=== PATIENT | female | born 1975 | race Caucasian/White ===

== ENCOUNTER 2018-07-21 21:02 | Inpatient (IN) | payer MEDICAID ==
[~2018-07-21] VITALS: Ht 167.6 cm; Wt 83.1 kg
[2018-07-21 22:39] LABS: Basophils # (auto) 0 uL; Basophils % (auto) 0.3 % (0.0-2.0); Eosinophils # (auto) 0 uL; Eosinophils % (auto) 0.4 % (0.0-7.0); Lymphocytes # (auto) 0.5 uL; Lymphocytes % (auto) 8.3 % (10.0-50.0); Mean Corpuscular Hemoglobin 32.8 pg (28.0-32.0); Mean Corpuscular Volume 96.4 fL (80.0-100.0); Monocytes # (auto) 0.3 uL; Monocytes % (auto) 5.1 % (0.0-12.0); Neutrophils # (auto) 5.4 uL; Neutrophils % (auto) 85.9 % (37.0-80.0); Platelet Count (auto) 200 10^3/uL (140-450); Red Blood Cells 4.87 10^6/uL (4.0-5.20); Red Cell Distribution Width 13.9 % (11.8-14.3); White Blood Cell 6.3 10^3/uL (4.4-10.8)
[2018-07-21 22:48] LABS: Albumin 3.4 g/dL (3.4-5.0); Calcium 8.3 mg/dL (8.5-10.1)
[2018-07-21 22:52] LABS: BUN/Creatinine Ratio 19.2; Bilirubin, Total 0.8 mg/dL (0.2-1.0); Total Protein 7.2 g/dL (6.4-8.2)
[2018-07-21] MEDS ORDERED: ONDANSETRON HCL 4 MG/2 ML VIAL IV ONE (23:00)
[2018-07-21] MEDS ORDERED: FAMOTIDINE (10MG/ML) 2ML VL IV ONE (23:00)
[2018-07-21] MEDS ORDERED: MORPHINE SULFATE 4 MG/ML SYR/VIAL IV ONE (23:00)
[2018-07-22 00:28] LABS: Urine Bacteria FEW /hpf (None Seen); Urine Blood 3+ /uL (Negative); Urine Mucus FEW (None Seen); Urine Specific Gravity 1.033 (1.001-1.035); Urine WBC 3 /hpf (0 - 5)
[2018-07-22] MEDS ORDERED: MVI in SODIUM CHLORIDE 0.9% 1,010 ML ONE (01:01)
[2018-07-22] MEDS ORDERED: ACETAMINOPHEN 325 MG TAB PO PRN (03:00)
[2018-07-22] MEDS ORDERED: ONDANSETRON HCL 4 MG/2 ML VIAL IV PRN (03:00)
[2018-07-22] MEDS ORDERED: POTASSIUM CHL 20 Meq TABLET PO ONE ×2 (03:00→13:45)
[2018-07-22] MEDS: HYDROcodone-ACET 5/325MG TAB PO PRN ×3 (03:21→19:57)
[2018-07-22 04:10] VITALS: BP 118/76
[2018-07-22 04:57] VITALS: BP 118/76
[2018-07-22 09:00] VITALS: BP 129/82
[2018-07-22] MEDS: THIAMINE HCL 100 MG TAB PO SCH (10:37)
[2018-07-22] MEDS: FAMOTIDINE 20 MG TAB PO SCH ×2 (10:37→22:01)
[2018-07-22] MEDS: FOLIC ACID 1 MG TAB PO SCH (10:37)
[2018-07-22] MEDS ORDERED: THIAMINE INJ 100 MG, MULTIPLE VITAMIN 10 ML, FOLIC ACID 1 MG, MAGNESIUM SULF SDV 50% 8 ... IV ONE ×5 (12:00)
[2018-07-22 12:49] VITALS: BP 142/91
[2018-07-22 15:21] LABS: BUN/Creatinine Ratio 13.4; Calcium 7.8 mg/dL (8.5-10.1); Potassium 3.7 mmol/L (3.5-5.1)
[2018-07-22 17:00] VITALS: BP 146/96
[2018-07-22 22:00] VITALS: BP 144/77
[2018-07-22] MEDS: PROPRANOLOL HCL 20 MG TAB PO SCH (22:00)
[2018-07-23] MEDS: HYDROcodone-ACET 5/325MG TAB PO PRN ×2 (01:51→18:38)
[2018-07-23] MEDS: TEMAZEPAM 15 MG CAP PO PRN (01:51)
[2018-07-23 05:38] VITALS: BP 128/90
[2018-07-23 05:38] LABS: Basophils # (auto) 0 uL; Basophils % (auto) 0.7 % (0.0-2.0); Eosinophils # (auto) 0.3 uL; Eosinophils % (auto) 3.9 % (0.0-7.0); Hematocrit 43.2 % (36.0-46.0); Lymphocytes # (auto) 1.6 uL; Lymphocytes % (auto) 24.7 % (10.0-50.0); Mean Corpuscular Hemoglobin 33.6 pg (28.0-32.0); Mean Corpuscular Hgb Conc. 34.6 g/dL (32.0-36.0); Monocytes # (auto) 0.5 uL; Monocytes % (auto) 8.2 % (0.0-12.0); Neutrophils % (auto) 62.5 % (37.0-80.0); Platelet Count (auto) 190 10^3/uL (140-450); Red Blood Cells 4.46 10^6/uL (4.0-5.20); White Blood Cell 6.4 10^3/uL (4.4-10.8)
[2018-07-23 05:54] LABS: INR 0.96 (0.9-1.15); Partial Thromboplastin Time 27.4 sec (23.78-33.04); Prothrombin Time 10.3 sec (9.27-12.13)
[2018-07-23 06:06] LABS: Albumin 3.1 g/dL (3.4-5.0); BUN/Creatinine Ratio 10.2; Potassium 4.4 mmol/L (3.5-5.1)
[2018-07-23 06:08] LABS: Bilirubin, Total 0.5 mg/dL (0.2-1.0); Total Protein 6.7 g/dL (6.4-8.2)
[2018-07-23 07:50] VITALS: BP 113/78
[2018-07-23] MEDS: FOLIC ACID 1 MG TAB PO SCH (10:06)
[2018-07-23] MEDS: THIAMINE HCL 100 MG TAB PO SCH (10:07)
[2018-07-23] MEDS: FAMOTIDINE 20 MG TAB PO SCH ×2 (10:07→22:00)
[2018-07-23] MEDS: PROPRANOLOL HCL 20 MG TAB PO SCH ×2 (10:07→22:00)
[2018-07-23 13:00] VITALS: BP 127/84
[2018-07-23 17:00] VITALS: BP 130/93
[2018-07-23 22:24] VITALS: BP 138/90
[2018-07-24] MEDS: HYDROcodone-ACET 5/325MG TAB PO PRN ×2 (05:21→22:00)
[2018-07-24 05:58] VITALS: BP 129/86
[2018-07-24 09:00] VITALS: BP 105/70
[2018-07-24] MEDS: FOLIC ACID 1 MG TAB PO SCH (10:47)
[2018-07-24] MEDS: THIAMINE HCL 100 MG TAB PO SCH (10:47)
[2018-07-24] MEDS: PROPRANOLOL HCL 20 MG TAB PO SCH ×2 (10:48→22:15)
[2018-07-24] MEDS: FAMOTIDINE 20 MG TAB PO SCH ×2 (10:48→22:30)
[2018-07-24] MEDS ORDERED: GADOPENTETATE DIMEGLUMINE (10MMOL/20 ML) VIAL IV ONE (12:43)
[2018-07-24 13:00] VITALS: BP 124/89
[2018-07-24 17:00] VITALS: BP 126/83
[2018-07-24 22:00] VITALS: BP 125/78
[2018-07-24 23:16] LABS: Urine Bacteria NONE SEEN /hpf (None Seen); Urine Blood 2+ /uL (Negative); Urine Specific Gravity 1.002 (1.001-1.035); Urine WBC <1 /hpf (0 - 5)
[2018-07-25 05:30] VITALS: BP 105/65
[2018-07-25] MEDS ORDERED: ceFAZolin 1GM/50ML 100 ML IV ONE (07:12)
[2018-07-25] MEDS ORDERED: GENTAMICIN SULF 80 MG/2 ML VIAL ONE (07:13)
[2018-07-25] MEDS ORDERED: SUCCINYLCHOLINE CHLORIDE 20 MG/ML 10ML VIAL IV ONE (07:19)
[2018-07-25] MEDS ORDERED: LIDOCAINE 1% INJ PF 5ML AMP ONE (07:19)
[2018-07-25] MEDS ORDERED: MIDAZOLAM HCL 1MG/1ML-2 ML VIAL ONE (07:22)
[2018-07-25] MEDS ORDERED: PROPOFOL 10 MG/ML 20 ML IV ONE (07:23)
[2018-07-25] MEDS ORDERED: ROCURONIUM 10MG/ML 10ML VIAL IV ONE (07:23)
[2018-07-25] MEDS ORDERED: METOCLOPRAMIDE HCL 5MG/ml INJ 2ml VIAL ONE (07:23)
[2018-07-25] MEDS ORDERED: fentaNYL CITRATE 100 MCG/2 ML VL ONE (07:37)
[2018-07-25] MEDS ORDERED: HYDROmorphone HCL 2 MG/ML VL IV PRN (07:45)
[2018-07-25] MEDS ORDERED: ONDANSETRON HCL 4 MG/2 ML VIAL IV ONE (07:45)
[2018-07-25] MEDS ORDERED: NALOXONE HCL 0.4 MG/ML VIAL IV PRN (07:45)
[2018-07-25] MEDS ORDERED: ePHEDrine SULFATE 50 MG/ML AMP ONE (07:47)
[2018-07-25] MEDS ORDERED: STERILE WATER 10 ML ONE (07:49)
[2018-07-25] MEDS ORDERED: KETOROLAC TROMETH 30 MG/ML 1ML VIAL ONE (08:02)
[2018-07-25] MEDS ORDERED: GLYCOPYRROLATE 0.2 MG/ML 1ML VIAL ONE (08:06)
[2018-07-25] MEDS ORDERED: NEOSTIGMINE 1 MG/ML INJ (10mg/10ML VIAL) ONE (08:06)
[2018-07-25] MEDS: HYDROmorphone HCL 2 MG/ML VL IV PRN ×7 (08:39→20:48)
[2018-07-25] MEDS ORDERED: ACETAMINOPHEN IV 100 ML IV ONE (08:45)
[2018-07-25] MEDS: FOLIC ACID 1 MG TAB PO SCH (11:21)
[2018-07-25] MEDS: THIAMINE HCL 100 MG TAB PO SCH (11:21)
[2018-07-25] MEDS: FAMOTIDINE 20 MG TAB PO SCH ×2 (11:21→21:51)
[2018-07-25] MEDS: ONDANSETRON HCL 4 MG/2 ML VIAL IV PRN ×2 (11:24→17:14)
[2018-07-25 11:34] LABS: Basophils # (auto) 0.1 uL; Basophils % (auto) 1.2 % (0.0-2.0); Eosinophils # (auto) 0.2 uL; Eosinophils % (auto) 2.7 % (0.0-7.0); Hematocrit 43.8 % (36.0-46.0); Hemoglobin 14.9 g/dL (12.2-16.2); Lymphocytes # (auto) 1.7 uL; Mean Corpuscular Hemoglobin 32.6 pg (28.0-32.0); Mean Corpuscular Hgb Conc. 34.1 g/dL (32.0-36.0); Mean Corpuscular Volume 95.8 fL (80.0-100.0); Monocytes # (auto) 0.6 uL; Monocytes % (auto) 6.5 % (0.0-12.0); Neutrophils # (auto) 6.6 uL; Neutrophils % (auto) 71.6 % (37.0-80.0); Nucleated Red Blood Cells % 0.1 %; Platelet Count (auto) 194 10^3/uL (140-450); Red Blood Cells 4.57 10^6/uL (4.0-5.20); Red Cell Distribution Width 13.8 % (11.8-14.3); White Blood Cell 9.2 10^3/uL (4.4-10.8)
[2018-07-25] MEDS: PROPRANOLOL HCL 20 MG TAB PO SCH ×2 (11:36→21:51)
[2018-07-25 11:49] LABS: Albumin 2.9 g/dL (3.4-5.0); Calcium 8.1 mg/dL (8.5-10.1)
[2018-07-25 11:52] LABS: BUN/Creatinine Ratio 16.1; Bilirubin, Total 0.3 mg/dL (0.2-1.0); Total Protein 6.1 g/dL (6.4-8.2)
[2018-07-25] MEDS ORDERED: ceFAZolin 1GM/50ML 50 ML IV NR (12:00)
[2018-07-25] MEDS: LACTATED RINGER'S 1,000 ML IV SCH ×3 (12:13→21:56)
[2018-07-25 13:00] VITALS: BP 111/60
[2018-07-25 16:45] VITALS: BP 116/71
[2018-07-25] MEDS: ceFAZolin 1GM/50ML 50 ML IV SCH (17:14)
[2018-07-25 22:00] VITALS: BP 111/67
[2018-07-26] MEDS: HYDROmorphone HCL 2 MG/ML VL IV PRN ×7 (00:53→23:57)
[2018-07-26] MEDS: ceFAZolin 1GM/50ML 50 ML IV SCH (01:03)
[2018-07-26] MEDS: LACTATED RINGER'S 1,000 ML IV SCH ×2 (03:04→09:04)
[2018-07-26 05:10] VITALS: BP 127/80
[2018-07-26 05:39] LABS: Basophils # (auto) 0 uL; Basophils % (auto) 0.3 % (0.0-2.0); Eosinophils # (auto) 0.1 uL; Eosinophils % (auto) 1.4 % (0.0-7.0); Hematocrit 40.6 % (36.0-46.0); Hemoglobin 14.2 g/dL (12.2-16.2); Lymphocytes # (auto) 1.7 uL; Lymphocytes % (auto) 21.3 % (10.0-50.0); Mean Corpuscular Hemoglobin 33.2 pg (28.0-32.0); Mean Corpuscular Hgb Conc. 34.8 g/dL (32.0-36.0); Mean Corpuscular Volume 95.4 fL (80.0-100.0); Monocytes # (auto) 0.9 uL; Monocytes % (auto) 11.2 % (0.0-12.0); Neutrophils # (auto) 5.3 uL; Neutrophils % (auto) 65.8 % (37.0-80.0); Nucleated Red Blood Cells % 0.1 %; Platelet Count (auto) 164 10^3/uL (140-450); Red Blood Cells 4.26 10^6/uL (4.0-5.20); Red Cell Distribution Width 13.6 % (11.8-14.3)
[2018-07-26 08:30] VITALS: BP 115/75
[2018-07-26 09:00] VITALS: BP_SYST 115; BP_SYST 132; BP_DIAS 51; BP_DIAS 75
[2018-07-26] MEDS ORDERED: HYDROcodone-ACET 5/325MG TAB PO PRN ×2 (09:15)
[2018-07-26] MEDS: PROPRANOLOL HCL 20 MG TAB PO SCH ×2 (09:38→22:07)
[2018-07-26] MEDS: FOLIC ACID 1 MG TAB PO SCH (09:38)
[2018-07-26] MEDS: DOCUSATE SOD 100 MG CAP PO SCH ×2 (09:39→22:06)
[2018-07-26] MEDS: THIAMINE HCL 100 MG TAB PO SCH (09:39)
[2018-07-26] MEDS: SIMETHICONE 80 MG CHEWABLE TABLET PO PRN (09:39)
[2018-07-26] MEDS: FAMOTIDINE 20 MG TAB PO SCH ×2 (09:39→22:07)
[2018-07-26] MEDS: SODIUM CHLORIDE 0.9% 1,000 ML IV SCH (11:42)
[2018-07-26 13:00] VITALS: BP 129/90
[2018-07-26 17:00] VITALS: BP 121/72
[2018-07-26 22:00] VITALS: BP 134/79
[2018-07-27] MEDS: SODIUM CHLORIDE 0.9% 1,000 ML IV SCH ×2 (01:30→07:45)
[2018-07-27] MEDS: HYDROmorphone HCL 2 MG/ML VL IV PRN ×6 (03:30→20:06)
[2018-07-27 05:00] VITALS: BP 122/73
[2018-07-27 05:15] LABS: Basophils # (auto) 0.1 uL; Basophils % (auto) 0.9 % (0.0-2.0); Eosinophils # (auto) 0.1 uL; Eosinophils % (auto) 1.3 % (0.0-7.0); Hematocrit 40.6 % (36.0-46.0); Hemoglobin 14.1 g/dL (12.2-16.2); Lymphocytes # (auto) 1.7 uL; Lymphocytes % (auto) 25.7 % (10.0-50.0); Mean Corpuscular Hemoglobin 33.1 pg (28.0-32.0); Mean Corpuscular Hgb Conc. 34.9 g/dL (32.0-36.0); Mean Corpuscular Volume 94.9 fL (80.0-100.0); Monocytes # (auto) 1.2 uL; Monocytes % (auto) 17.4 % (0.0-12.0); Neutrophils # (auto) 3.7 uL; Neutrophils % (auto) 54.7 % (37.0-80.0); Nucleated Red Blood Cells % 0.2 %; Platelet Count (auto) 189 10^3/uL (140-450); Red Blood Cells 4.28 10^6/uL (4.0-5.20); Red Cell Distribution Width 13.3 % (11.8-14.3); White Blood Cell 6.7 10^3/uL (4.4-10.8)
[2018-07-27 05:30] LABS: Albumin 2.6 g/dL (3.4-5.0); Calcium 8.4 mg/dL (8.5-10.1); INR 0.96 (0.9-1.15); Magnesium 1.9 mg/dL (1.6-2.6); Partial Thromboplastin Time 29.2 sec (23.78-33.04); Potassium 3.8 mmol/L (3.5-5.1); Prothrombin Time 10.3 sec (9.27-12.13)
[2018-07-27 05:35] LABS: BUN/Creatinine Ratio 9.1; Bilirubin, Direct 0.2 mg/dL (0-0.2); Bilirubin, Total 0.6 mg/dL (0.2-1.0); Total Protein 6.2 g/dL (6.4-8.2)
[2018-07-27 08:25] VITALS: BP 123/76
[2018-07-27 08:30] VITALS: BP 123/76
[2018-07-27] MEDS: SIMETHICONE 80 MG CHEWABLE TABLET PO PRN (08:36)
[2018-07-27] MEDS: FOLIC ACID 1 MG TAB PO SCH (08:36)
[2018-07-27] MEDS: DOCUSATE SOD 100 MG CAP PO SCH ×2 (08:36→23:32)
[2018-07-27] MEDS: FAMOTIDINE 20 MG TAB PO SCH ×2 (08:36→23:32)
[2018-07-27] MEDS: THIAMINE HCL 100 MG TAB PO SCH (08:36)
[2018-07-27] MEDS: PROPRANOLOL HCL 20 MG TAB PO SCH ×2 (08:37→23:33)
[2018-07-27 12:10] VITALS: BP 134/79
[2018-07-27] MEDS ORDERED: chlordiazePOXIDE HCL 5 MG CAP PO PRN (12:15)
[2018-07-27 16:36] VITALS: BP 138/83
[2018-07-27] MEDS: HYDROcodone-ACET 10/325MG TAB PO PRN (17:49)
[2018-07-27 21:27] VITALS: BP 135/88
[2018-07-27] MEDS: TEMAZEPAM 15 MG CAP PO PRN (23:41)
[2018-07-28] MEDS: HYDROcodone-ACET 10/325MG TAB PO PRN (01:38)
[2018-07-28] MEDS: HYDROmorphone HCL 2 MG/ML VL IV PRN ×4 (03:20→18:40)
[2018-07-28 04:48] VITALS: BP 126/81
[2018-07-28 08:00] VITALS: BP 144/91
[2018-07-28 08:21] VITALS: BP 144/91
[2018-07-28] MEDS: DOCUSATE SOD 100 MG CAP PO SCH (09:44)
[2018-07-28] MEDS: FAMOTIDINE 20 MG TAB PO SCH (09:44)
[2018-07-28] MEDS: FOLIC ACID 1 MG TAB PO SCH (09:44)
[2018-07-28] MEDS: THIAMINE HCL 100 MG TAB PO SCH (09:45)
[2018-07-28] MEDS: PROPRANOLOL HCL 20 MG TAB PO SCH (09:45)
[2018-07-28 12:13] VITALS: BP 132/90
[2018-07-28] MEDS ORDERED: HYDR-4683 PO (16:25)
[2018-07-28] MEDS ORDERED: FOLI1TAB6 PO (16:26)
[2018-07-28] MEDS ORDERED: IBUP800T24 PO (16:26)
[2018-07-28] MEDS ORDERED: CEPH-37 PO (16:26)
[2018-07-28] MEDS ORDERED: METO25TA5 PO (16:26)
[2018-07-28] MEDS ORDERED: THIA50CA PO (16:26)
[2018-07-28] MEDS ORDERED: DOCU100C8 PO (16:26)
[2018-07-28 16:54] VITALS: BP 137/63
== END 2018-07-28 19:45 | disposition home health service (06) | DRG 264 ==
LOC: EDUNIT# 21:02 → EDBD 21:02 → ER 21:05 → OVERFLOW 07-22 03:06 → EAST 07-22 04:00
PROVIDERS: ADMIT Nurse Practitioner; ATTEND Hospitalist
PROC: 0DTJ0ZZ Resection of Appendix, Open Approach (ICD-10-PCS; 2018-07-25)
PROC: 0DBW0ZZ Excision of Peritoneum, Open Approach (ICD-10-PCS; 2018-07-25)
PROC: 0D9W0ZZ Drainage of Peritoneum, Open Approach (ICD-10-PCS; 2018-07-25)
PROC: 0WJJ0ZZ Inspection of Pelvic Cavity, Open Approach (ICD-10-PCS; principal; 2018-07-25 07:21)
DX: K70.10 Alcoholic hepatitis without ascites (principal); K66.8 Other specified disorders of peritoneum; E66.01 Morbid (severe) obesity due to excess calories; K76.0 Fatty (change of) liver, not elsewhere classified; N83.292 Other ovarian cyst, left side; N70.11 Chronic salpingitis; E87.6 Hypokalemia; F10.20 Alcohol dependence, uncomplicated; I10 Essential (primary) hypertension; K21.9 Gastro-esophageal reflux disease without esophagitis; I34.1 Nonrheumatic mitral (valve) prolapse; D27.0 Benign neoplasm of right ovary; F17.210 Nicotine dependence, cigarettes, uncomplicated; Z80.51 Family history of malignant neoplasm of kidney; Z80.8 Family history of malignant neoplasm of other organs or systems; Z68.29 Body mass index [BMI] 29.0-29.9, adult; R19.00 Intra-abdominal and pelvic swelling, mass and lump, unspecified site
CPT/HCPCS: 36415; 71045; 73723; 74176; 76705; 76856; 80048; 80053; 80076; 81001; 82378; 83690; 83735; 84439; 84443; 84702; 85025; 85610; 85730; 86301; 86304; 86850; 86900; 86901; 86920; 93005; 94761; 96365; 96375; 97116; 97163; 97530; G0378; J0131; J0330; J0690; J1885; J2250; J2405; J2704; J3490

== ENCOUNTER 2019-06-28 12:07 | Emergency (ER) | payer MEDICAID ==
[~2019-06-28] VITALS: Ht 317.5 cm; Wt 86.2 kg
[~2019-06-28 12:07] MED LIST: CEPH-37 PO; DOCU100C8 PO; FOLI1TAB6 PO; HYDR-4833 PO; IBUP800T24 PO; METO25TA5 PO; THIA50CA PO
[2019-06-28 12:40] LABS: Urine Bacteria NONE SEEN /hpf (None Seen); Urine Blood Negative /uL (Negative); Urine Mucus FEW (None Seen); Urine Specific Gravity 1.033 (1.001-1.035); Urine WBC 1 /hpf (0 - 5)
[2019-06-28 12:42] LABS: Basophils # (auto) 0.1 uL; Eosinophils # (auto) 0.2 uL; Eosinophils % (auto) 1.4 % (0.0-7.0); Hematocrit 47.7 % (36.0-46.0); Hemoglobin 16.1 g/dL (12.2-16.2); Lymphocytes # (auto) 2.5 uL; Lymphocytes % (auto) 19.2 % (10.0-50.0); Mean Corpuscular Hemoglobin 32.7 pg (28.0-32.0); Mean Corpuscular Hgb Conc. 33.8 g/dL (32.0-36.0); Mean Corpuscular Volume 96.6 fL (80.0-100.0); Monocytes # (auto) 1.1 uL; Monocytes % (auto) 8.1 % (0.0-12.0); Neutrophils # (auto) 9.2 uL; Neutrophils % (auto) 70.3 % (37.0-80.0); Nucleated Red Blood Cells % 0.2 %; Platelet Count (auto) 249 10^3/uL (140-450); Red Blood Cells 4.93 10^6/uL (4.0-5.20); Red Cell Distribution Width 12.7 % (11.8-14.3)
[2019-06-28] MEDS ORDERED: SODIUM CHLORIDE 0.9% 1,000 ML IVB ONE (12:46)
[2019-06-28] MEDS ORDERED: MORPHINE SULFATE 4 MG/ML SYR/VIAL IV ONE (13:00)
[2019-06-28] MEDS ORDERED: FAMOTIDINE (10MG/ML) 2ML VL IV ONE (13:00)
[2019-06-28] MEDS ORDERED: ONDANSETRON HCL 4 MG/2 ML VIAL IV ONE (13:00)
[2019-06-28 13:07] LABS: Albumin 3.8 g/dL (3.4-5.0); BUN/Creatinine Ratio 25.9; Calcium 7.8 mg/dL (8.5-10.1); Potassium 4.1 mmol/L (3.5-5.1); Total Protein 7.5 g/dL (6.4-8.2)
[2019-06-28 16:42] VITALS: BP 127/84
== END 2019-06-28 17:13 | disposition home or self-care (01) ==
LOC: ER 12:16
DX: K29.70 Gastritis, unspecified, without bleeding (principal); F15.10 Other stimulant abuse, uncomplicated; F17.210 Nicotine dependence, cigarettes, uncomplicated; F12.10 Cannabis abuse, uncomplicated; I10 Essential (primary) hypertension
CPT/HCPCS: 36415; 74176; 80053; 81001; 83690; 85025; 94761; 96361; 96374; 96375; 99284; J2270; J2405; J3490; J7030

== ENCOUNTER → 2019-12-13 | Emergency (ER) | payer MEDICAID ==
[~2019-12-13] VITALS: Ht 167.6 cm; Wt 86.2 kg
[~2019-12-13] MED LIST changes: +SODIUM CHLORIDE 0.9% 1,000 ML IV ONE
[2019-12-13 07:52] LABS: Basophils # (auto) 0 10 ^3/uL (0-0.2); Basophils % (auto) 0.3 % (0.0-2.0); Eosinophils # (auto) 0.2 10 ^3/uL (0-0.8); Eosinophils % (auto) 2.3 % (0.0-7.0); Hematocrit 42.7 % (36.0-46.0); Hemoglobin 14.6 g/dL (12.2-16.2); Lymphocytes # (auto) 2.2 10 ^3/uL (0.4-5.4); Lymphocytes % (auto) 29.7 % (10.0-50.0); Mean Corpuscular Hemoglobin 32.8 pg (28.0-32.0); Mean Corpuscular Hgb Conc. 34.2 g/dL (32.0-36.0); Mean Corpuscular Volume 95.7 fL (80.0-100.0); Monocytes # (auto) 0.5 10 ^3/uL (0-1.3); Monocytes % (auto) 7.4 % (0.0-12.0); Neutrophils # (auto) 4.5 10 ^3/uL (1.6-8.6); Neutrophils % (auto) 60.3 % (37.0-80.0); Nucleated Red Blood Cells % 0.1 %; Platelet Count (auto) 206 10^3/uL (140-450); Red Blood Cells 4.47 10^6/uL (4.0-5.20); Red Cell Distribution Width 13.2 % (11.8-14.3); White Blood Cell 7.4 10^3/uL (4.4-10.8)
[2019-12-13 08:11] LABS: Albumin 3.4 g/dL (3.4-5.0); Anion Gap 9 (5-15); Blood Urea Nitrogen 9 mg/dL (7-18); Calcium 8.7 mg/dL (8.5-10.1); Carbon Dioxide 26 mmol/L (21-32); Chloride 107 mmol/L (98-107); Glucose 106 mg/dL (74-106); Potassium 3.5 mmol/L (3.5-5.1); Sodium 142 mmol/L (136-145)
[2019-12-13 08:17] LABS: Alanine Aminotransferase 147 U/L (13-56); Alkaline Phosphatase 71 U/L (45-117); Aspartate Aminotransferase 143 U/L (15-37); BUN/Creatinine Ratio 12.7; Bilirubin, Total 0.3 mg/dL (0.2-1.0); GFR African American 114 mL/min; GFR Non-African American 94 mL/min
[2019-12-13 08:24] LABS: Urine Bacteria MOD /hpf (None Seen); Urine Blood Negative /uL (Negative); Urine Hyaline Cast MOD /lpf (0 - 2); Urine Mucus FEW (None Seen); Urine Specific Gravity 1.021 (1.001-1.035); Urine WBC 4 /hpf (0 - 5)
[2019-12-13 08:38] LABS: Benzodiazephine Screen, Urine NEGATIVE (NEGATIVE); Cannabinoid Screen, Urine POSITIVE (NEGATIVE); Cocaine Screen, Urine NEGATIVE (NEGATIVE); Opiate Scree,Urine NEGATIVE (NEGATIVE)
[2019-12-13 08:48] LABS: Amphetamine Screen, Urine POSITIVE (NEGATIVE); Barbiturate Scree,Urine NEGATIVE (NEGATIVE); Phencyclidine Screen, Urine NEGATIVE (NEGATIVE)
[2019-12-13 10:02] VITALS: BP 123/78
== END | disposition home or self-care (01) ==
LOC: EDUNIT# 07:11 → EDBD 07:11 → ER 07:11
DX: K52.9 Noninfective gastroenteritis and colitis, unspecified (principal); E86.0 Dehydration; F12.10 Cannabis abuse, uncomplicated; I10 Essential (primary) hypertension; F17.210 Nicotine dependence, cigarettes, uncomplicated; F15.10 Other stimulant abuse, uncomplicated
CPT/HCPCS: 36415; 70450; 71046; 74176; 80053; 80307; 80320; 81001; 83735; 84484; 85025; 93005; 96360; 96361; 99285; J7030